=== PATIENT | male | born 1955 | race Caucasian/White ===

== ENCOUNTER 2018-11-02 06:44 | Day surgery (SDC) | payer BC ==
[~2018-11-02] VITALS: Ht 177.8 cm; Wt 79.5 kg
[~2018-11-02 06:44] MED LIST: Aspirin EC81 MG PO; CLARITIN10 MG PO; ESOM20 PO; Flonase 0.05% N16 GM; MONT10T PO; NEXIUM 24HR20 M2 PO
--- NOTE | 2018-11-02 08:24 | NUR ---
11/02/18 0824 Bee Frank GROPUNDING PAD RIGHT FLANK
== END 2018-11-02 08:50 | disposition home or self-care (01) ==
LOC: ORSCSDS 06:44
PROVIDERS: Surgery
PROC: 0DBN8ZX Excision of Sigmoid Colon, Via Natural or Artificial Opening Endoscopic, Diagnostic (ICD-10-PCS; principal; 2018-11-02 08:00)
PROC: 0DBK8ZX Excision of Ascending Colon, Via Natural or Artificial Opening Endoscopic, Diagnostic (ICD-10-PCS; principal; 2018-11-02 08:00)
DX: Z12.11 Encounter for screening for malignant neoplasm of colon (principal); Z86.010 Personal history of colon polyps; D12.2 Benign neoplasm of ascending colon; D12.5 Benign neoplasm of sigmoid colon; J45.909 Unspecified asthma, uncomplicated; Z79.899 Other long term (current) drug therapy; Z79.82 Long term (current) use of aspirin
CPT/HCPCS: 88305; J0330; J1980; J2405; J7120

== ENCOUNTER 2019-05-07 07:21 | Day surgery (SDC) | payer BC ==
[~2019-05-07] VITALS: Ht 177.8 cm; Wt 77.9 kg
[2019-05-07 08:21] LABS: Anion Gap 4 mmol/L (6-16); Blood Urea Nitrogen 20 mg/dL (8-24); Bun/Creatinine Ratio 19.4 (12.0-20.0); CO2, Blood 29 mmol/L (21-32); Calcium, Blood 8.9 mg/dL (8.5-10.1); Chloride, Blood 105 mmol/L (98-108); Creatinine, Blood 1.03 mg/dL (0.60-1.20); Glomerular Filtration Rate >60 (60-); Glucose, Blood 106 mg/dL (70-99); Potassium, Blood 3.9 mmol/L (3.5-5.5); Sodium, Blood 138 mmol/L (136-145)
--- NOTE | 2019-05-07 10:29 | NUR ---
05/07/[address] PT IS RESTING IN RECLINER WITH CALL LIGHT IN REACH.
== END 2019-05-07 10:54 | disposition home or self-care (01) ==
LOC: ORSCSDS 07:21
PROVIDERS: Surgery
PROC: 0YU60JZ Supplement Left Inguinal Region with Synthetic Substitute, Open Approach (ICD-10-PCS; principal; 2019-05-07 09:00)
DX: K40.90 Unilateral inguinal hernia, without obstruction or gangrene, not specified as recurrent (principal); Z01.810 Encounter for preprocedural cardiovascular examination; J45.909 Unspecified asthma, uncomplicated; K21.9 Gastro-esophageal reflux disease without esophagitis; Z79.899 Other long term (current) drug therapy
CPT/HCPCS: 36415; 80048; C1781; J1100; J1885; J2250; J2405; J2704; J3010; J7120